=== PATIENT | male | born 1990 | race African-American/Black ===

== ENCOUNTER 2022-10-06 08:39 | Emergency (ER) | payer BC, SELFPAY ==
[2022-10-06 08:55] VITALS: BP 109/68; PULSE 67; RESP 16; TEMP 36.4; O2SAT 100
--- NOTE | 2022-10-06 09:26 | ED.EYEPROB ---
HPI - Eye Problem General Chief complaint: Eye Problems Stated complaint: Right Eye Irritation Time Seen by Provider: 10/06/22 09:20 Source: patient and RN notes reviewed Mode of arrival: ambulatory Limitations: no limitations History of Present Illness HPI Narrative: Patient presents today complaining of a 2 day history of right eye redness, yellow drainage, and pain to the upper eyelid. Denies vision changes. Left eye normal. He has been using [id number] drops without relief. Denies sick contacts. Related Data Allergies Allergy/AdvReac Type Severity Reaction Status Date / Time No Known Allergies Allergy Verified 10/06/22 09:07 Review of Systems Review of Systems: CONSTITUTIONAL: Denies body aches, fever, chills, or sweats. EYES: Denies visual changes. + right eye redness, drainage, swelling ENT: Denies rhinorrhea, congestion, sore throat, or otalgia. CARDIOVASCULAR: Denies chest pain, palpitations, or edema. RESPIRATORY: Denies cough or dyspnea. GASTROINTESTINAL: Denies abdominal pain, nausea, vomiting, or diarrhea. GENITOURINARY: Denies dysuria or hematuria. SKIN: Denies rash, itching, or wounds. MUSCULOSKELETAL: Denies back pain, joint pain, or myalgia. NEUROLOGIC: Denies headache, numbness, tingling, or weakness. PSYCH: Denies depression or anxiety. PMFSH Comments At time of signature, I have reviewed and agree with nursing past medical, surgical, social and family history unless otherwise noted. Please see nursing chart for further information. There is no relevant family history pertinent to the presenting complaint Exam Narrative: GENERAL: Well-appearing, well-nourished, and in no acute distress. HEAD: Normocephalic, atraumatic. EYES: EOMI. PERRL. Left eye normal. Right eye: Conjunctiva normal. Tenderness to the upper eyelid, primarily in the lateral canthus. Obvious pustule in the inner aspect of the upper eyelid. Lashes normal. No obvious drainage at this time. ENT: Mucous membranes pink and moist. NECK: Normal AROM. CHEST: No respiratory distress. EXTREMITIES: Normal range of motion. No edema. SKIN: Warm, dry, no rash. Capillary refill normal. Normal skin turgor. NEURO: No focal deficits. Alert and oriented x3. Gait steady. PSYCH: Normal affect. No signs of depression or anxiety. Course Course Level of Care: Express Care Visit Vital Signs Vital signs: Vital Signs Temperature 97.6 F 10/06/22 08:55 Pulse Rate 67 10/06/22 08:55 Respiratory Rate 16 10/06/22 08:55 Blood Pressure 109/68 10/06/22 08:55 Pulse Oximetry 100 10/06/22 08:55 Oxygen Delivery Room Air 10/06/22 08:55 Temperature 97.6 F 10/06/22 08:55 Pulse Rate 67 10/06/22 08:55 Respiratory Rate 16 10/06/22 08:55 Blood Pressure 109/68 10/06/22 08:55 Pulse Oximetry 100 10/06/22 08:55 Oxygen Delivery Room Air 10/06/22 08:55 Reviewed MDM - Eye Problem MDM Narrative Medical decision making narrative: Exam consistent with stye of the right upper eyelid. Will prescribe ciprofloxacin drops. Advised him to use warm compresses. Anticipatory guidance given. Differential Diagnosis Differential diagnosis: Likely conjunctivitis and other (Stye) Critical Care Time Critical Care Time Critical Care Time: No Discharge Plan Discharge Clinical Impression: Hordeolum internum of right upper eyelid Patient Disposition: Home, Self-Care Condition: Stable Instructions: Stye (ED) Additional Instructions: Please use the eyedrops as directed. Use a warm compress to facilitate drainage. Take Tylenol or ibuprofen for pain. Follow-up with an eye doctor in 3 days if symptoms are not improving. Prescriptions: New ciprofloxacin HCl 0.3 % drops 1 drp RIGHT EYE Q4H 7 Days Qty: 5 0RF Follow-up/Referrals: PHYSICIAN,SERVICE ENGINEER [Primary Care Provider] - Stand Alone Forms: Work/School Release IP Time of Disposition: 09:32
== END 2022-10-06 09:37 | disposition home or self-care (01) ==
PROVIDERS: Emergency Provider Nurse Practitioner
DX: H00.021 Hordeolum internum right upper eyelid (principal)
CPT/HCPCS: 99213; G0463